=== PATIENT | female | born 1995 | race African-American/Black ===

== ENCOUNTER 2020-11-23 06:13 | Inpatient (IN) | payer BC, SELFPAY ==
[2020-11-23] VITALS (16 sets, daily range): BP systolic 109–140; BP diastolic 63–103; PULSE 77–140; RESP 16–18; TEMP 36.6–36.9; O2SAT 100; BMI 33.0
[2020-11-23] MEDS: OXYTOCIN 30 UNITS/NS 500 ML 30 UNITS/500 ML BAG 999 UNITS IV CONT (06:45)
--- NOTE | 2020-11-23 06:47 | LDADM ---
This patient, Myriam Casillas, was admitted to Labor/Delivery/Recovery 102 on 11/23/20 at 06:13. Plans for labor, pain management and were discussed with patient. Patient/family oriented to hospital policies and general routines including ID bracelet, bed and alarms, visiting hours, pain management, procedures, bathroom and other care routines, personal items, smoking policy, room service/diet and guest tray routines, infant security routines, and visiting hours. Patient/Family are encouraged to report perceived risks to care and to ask questions if they do not understand what they are told or what they should do. See OBIX for further documentation.
[2020-11-23 07:04] LABS: Basophils Percent Auto 0.2 % (0.2-1.2); Eosinophils Percent Auto 0.1 % (0-4.4); Hematocrit 32.2 % (37.0-47.0); Hemoglobin 10.5 g/dL (12.0-15.0); Immature Granulocyte Absolute 0.06 K/mm3 (0.00-0.031); Immature Granulocyte Percent A 0.5 % (0-0.5); Lymphocytes Absolute Auto 0.73 K/mm3 (0.9-3.2); Lymphocytes Percent Auto 5.9 % (18.3-44.2); Mean Corpuscular HGB Conc 32.6 g/dl (32-36); Mean Corpuscular Hemoglobin 27.4 pg (26-34); Mean Corpuscular Volume 84.1 fl (80-100); Mean Platelet Volume 9.1 fl (7.4-10.4); Monocytes Absolute Auto 0.4 K/mm3 (0.1-0.6); Monocytes Percent Auto 3.6 % (2.6-8.5); Neutrophils Absolute Auto 11.1 K/mm3 (1.3-6.7); Neutrophils Percent Auto 89.7 % (45.5-73.1); Platelet Count Result 406 k/mm3 (150-375); Red Blood Count 3.83 M/mm3 (4.2-5.4); Red Cell Distribution Width 13.3 % (11.5-14.5); White Blood Count 12.3 K/mm3 (4.5-10.0)
[2020-11-23] MEDS: OXYTOCIN 30 UNITS/NS 500 ML 30 UNITS/500 ML BAG 125 UNITS IV CONT (07:15)
[2020-11-23 07:54] LABS: HIV 1/2 Ab P24 Ag Result Negative (Negative)
[2020-11-23 08:09] LABS: Hepatitis B Surface Antigen Negative (Negative)
[2020-11-23 08:23] LABS: Amphetamine Screen Urine Negative (Negative); Barbiturate Screen Urine Negative (Negative); Benzodiazepines Screen Urine Negative (Negative); Cannabinoid Screen Urine Negative (Negative); Methadone Screen Urine Negative (Negative); Opiate Screen Urine Negative (Negative); Phencyclidine Screen Urine Negative (Negative)
--- NOTE | 2020-11-23 08:23 | PM.IMHP ---
H&P: HPI History of Present Illness Date/Time: 11/23/20 08:23 24 yo F with a h/o UTI, GBS, MTHFR, h/o chlamydia/trich, HSV, presents to [facility] after NSVVD in ambulance of viable female and placenta with no complications care began 05/13/2020 with only four visits last visit 11/01/20 Chief Complaint: term delivered remotely Review of Systems Review of Systems: All systems reviewed & are unremarkable except as noted in HPI and below Constitutional: Constitutional: Reports no additional constitutional complaints Eyes: Eyes: Reports no additional eye complaints ENT: Reports system reviewed and no additional complaints, except as documented Cardiovascular: Cardiovascular: Reports no additional cardiovascular complaints Respiratory: Respiratory: Reports no additional respiratory complaints Gastrointestinal: Gastrointestinal: Reports no additional gastrointestinal complaints Genitourinary: Genitourinary: Reports no additional female genitourinary complaints Musculoskeletal: Musculoskeletal: Reports no additional musculoskeletal complaints Integumentary/Breasts: Skin/Breast: Reports system reviewed and no additional complaints, except as docu Neurologic: Reports system reviewed and no additional complaints, except as documented Psychiatric: Psychiatric: Reports no additional psychiatric complaints Endocrine: Endocrine: Reports no additional endocrine complaints Hematologic/Lymphatic: Hematologic/Lymphatic: Reports no additional hematologic/lymphatic complaints Allergic/Immunologic: Allergic/Immunologic: Reports no additional allergic/immunologic complaints [facility] Past Medical History Medical History (Updated 11/23/20 @ 08:40 by Jerry Ybarra MD) Candidiasis of vagina 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 GBS (group B Streptococcus carrier), +RV culture, currently History of chlamydia History of trichomoniasis History of UTI HSV (herpes simplex virus) anogenital infection Marijuana smoker Smoker STD (sexually transmitted disease) complicating , delivered Vaginal delivery 04/23/20121408 lbs.4.99 oz.MStandard Vaginal [facility] 05/31/20141406 lbs.6.99 oz.MStandard [facility]inal [facility] 02/08/20161419 lbs.MStandard Vaginal DeliveryFull Term [facility] Vaginal delivery 02/08/20191401 hrs.9 lbs.2 oz.FStandard Vaginal DeliveryFull [facility] Social History Social History (Updated 11/23/20 @ 08:42 by Jerry Ybarra MD) Smoking packs per day: 1 Smoking cigarettes per day: 20.0 Years smoked: 6 Smoking pack-years: 6.00 Smoking status: Current every day smoker Tobacco type: cigarettes Second hand tobacco smoke exposure: Yes Alcohol intake: former Substance use: current Substance use type: marijuana Living arrangements: with family Occupation/Education: unemployed Gender identity (if verbalized by the patient): Female Sexual Orientation (if Verbalized by the Patient): Straight or Heterosexual Spiritual care concerns: No Agree to blood products: Yes Meds Home Medications and Allergies Home Medications Medication Instructions Recorded Confirmed Type acyclovir 800 mg PO DAILY 11/23/20 11/23/20 History folic acid 2 mg PO BID 11/23/20 11/23/20 History penicillin V potassium 500 mg PO BID 11/23/20 11/23/20 History progesterone micronized 200 mg PO BID 11/23/20 11/23/20 History Allergies Allergy/AdvReac Type Severity Reaction Status Date / Time No Known Allergies Allergy Verified 11/23/20 08:42 Vital Signs Vital Signs - 24 hr 11/23/20 06:33 11/23/20 06:45 11/23/20 07:01 Pulse Rate 92 84 94 Blood Pressure 132/93 H 138/91 H 127/88 11/23/20 07:17 11/23/20 07:31 11/23/20
--- NOTE | 2020-11-23 08:28 | WPDHPUPDATE1 ---
History and Physical Update Update Date/Time: 11/23/20 08:28 History and Physical has been reviewed, including an updated exam of the patient. There are NO changes in the patient's condition. Risks, benefits, and alternatives have been discussed and questions answered. Patient agrees to proceed with procedure. 24 yo F with a h/o UTI, GBS, MTHFR, h/o chlamydia/trich, HSV, presents to [facility] after NSVVD in ambulance of viable female and placenta with no complications
--- NOTE | 2020-11-23 08:49 | WPDOBADMIT ---
Obstetrics - Admit Note Admission Note: record reviewed. No pertinent additions to the history and/or any subsequent changes in the physical findings that are not consistent with the expected course of the were found. Additions to the history and/or subsequent changes in the physical findings follow. None. 24 yo F with a h/o UTI, GBS, MTHFR, h/o chlamydia/trich, HSV, presents to [facility] after NSVVD in ambulance of viable female and placenta with no complications care began 05/13/2020 with only four visits last visit 11/01/20 Chief Complaint: term delivered remotely
--- NOTE | 2020-11-23 08:50 | PM.OBPRVD ---
OB - Delivery Note Procedure Delivery date: 11/23/20 Procedure: normal spontaneous vertex vaginal delivery per EMS remotely of viable female infant and placenta events: Meconium Stained Fluid Intrapartal events: Precipitous Labor < 3 hours and Sexually Transmitted Infection Induction method: none Delivery monitor: none Route of delivery: Episiotomy description: None Laceration Description: None Specimen: Yes (placenta) Quantitative Blood Loss (ml): 0 Anesthesia type: None Disposition: floor Complications: none Narrative: inspection in labor room 102 normal intact perineum [place] Baby Date of : 11/23/20 Time of : 05:25 Weeks of gestation at delivery: 38 Infant gender: Female Weight (pounds): 7 Weight (ounces): 13 presentation: vertex Placenta delivery description: Spontaneous and Normal Configuration cord vessel description: 3 Vessels score one minute: 8 score five minutes: 9 Narrative: to nursery
--- NOTE | 2020-11-23 09:05 | OBPPTRN ---
Patient transferred to post room # 288 via wheelchair. Support person present. Oriented to unit, room, information board, rooming in, admission packet and security measures. Patient verbalizes understanding.
--- NOTE | 2020-11-23 11:20 | PCCCNOTE ---
Addendum entered by Faith Pop, LAWSON 11/24/20 11:14: Received additional call from Shannon stating pt.'s current case making machine operator is Zahira Finn who can be contacted at [phone]. Zahira is aware of tentative discharge tomorrow. Addendum entered by Faith Pop, LAWSON 11/24/20 11:02: Received call from Shannon [place] supervisor pipe finishing to Lc with DCFS. Per Shannon DCFS will be taking custody of baby at discharge. Informed Shannon that baby will likely discharge Friday. Shannon can be contacted at [phone]. Addendum entered by Faith Pop, LAWSON 11/23/20 14:49: Received call that DCFS worker Lc Manda is assigned to the case and can be contacted at cell phone [phone], office number is [phone]. Per Lc he will complete a home assessment this afternoon at 4pm and will contact CC once determination is made. Original Note: Care Coordination Consult: Met with pt. and SABA Andrade today. Pt. reports she has all necessary supplies at home for baby girl including a carseat, crib, clothing, diapers and bottles. Pt. plans to sign up for [facility] services at discharge. When asked if pt. had DCFS history she stated she does not have them anymore. When asked if there was a current DCFS worker she stated no, she stated DCFS is not involved with this baby. Did inform Myriam that DCFS has been notified of baby's and will be coming to the hospital today to meet with her. Did complete DCFS report #[id number] and spoke with Merari Dickens at the hotline who confirmed that a DCFS worker will be coming to the hospital today to meet with pt. Nursing is aware.
--- NOTE | 2020-11-23 12:43 | PC.NURSE ---
DCFS here to see pt.
[2020-11-23 13:13] LABS: Rapid Plasma Reagin Non-Reactive (NonReactive)
[2020-11-23 17:17] LABS: Alanine Aminotransferase 18 U/L (4-35); Albumin Level 3.5 g/dL (3.5-5.1); Alkaline Phosphatase 223 U/L (38-126); Anion Gap 8 mmol/L (8-16); Aspartate Amino Transferase 24 U/L (14-36); Bilirubin,Total 0.4 mg/dL (0.2-1.3); Blood Urea Nitrogen 5 mg/dL (7-17); Calcium 8.6 mg/dL (8.4-10.2); Carbon Dioxide 20 mmol/L (22-30); Chloride 107 mmol/L (98-107); Estimated CRCL calculation 163 ml/min; Estimated Glomerular Filt Rate > 60; Glucose 112 mg/dL (65-110); Sodium 135 mmol/L (137-145); Uric Acid 4.7 mg/dL (2.5-7.5)
[2020-11-23] MEDS: IBUPROFEN 600 MG TABLET PO (18:18)
[2020-11-24] MEDS: IBUPROFEN 600 MG TABLET PO ×3 (04:35→18:47)
[2020-11-24 05:33] LABS: Hematocrit 28.6 % (37.0-47.0); Hemoglobin 9.1 g/dL (12.0-15.0)
[2020-11-24 07:55] VITALS: BP 118/75; PULSE 69; RESP 18; TEMP 36.6; O2SAT 100
[2020-11-24] MEDS: DOCUSATE SODIUM 100 MG CAPSULE PO ×2 (10:20→18:47)
[2020-11-24] MEDS: POLYSACCHARIDE IRON COMPLEX 150 MG CAPSULE PO ×2 (10:20→18:47)
--- NOTE | 2020-11-24 10:57 | PM.OBDSVD ---
DS: Admitting Diagnosis Discharge Date November 25 2020 Admitting Diagnosis 1) Term delivered: Code(s): O80 - Encounter for full-term uncomplicated delivery Status: Acute (2) Insufficient care, delivered, current hospitalization: Code(s): O09.30 - Supervision of with insufficient care, unspecified trimester Status: Acute (3) Compound heterozygous MTHFR mutation C677T/[id number]: Code(s): Z15.89 - Genetic susceptibility to other disease Status: Acute (4) GBS (group B Streptococcus carrier), +RV culture, currently : Code(s): O99.820 - Streptococcus B carrier state complicating Status: Acute (5) HSV (herpes simplex virus) anogenital infection: Code(s): A60.9 - Anogenital herpesviral infection, unspecified Status: Acute (6) STD (sexually transmitted disease) complicating , delivered: Code(s): O98.32 - Other infections with a predominantly sexual mode of transmission complicating childbirth Status: Acute DS: Discharge Diagnosis Discharge Diagnosis (1) Term delivered: Code(s): O80 - Encounter for full-term uncomplicated delivery Status: Acute (2) Insufficient care, delivered, current hospitalization: Code(s): O09.30 - Supervision of with insufficient care, unspecified trimester Status: Acute (3) Compound heterozygous MTHFR mutation [id number]: Code(s): Z15.89 - Genetic susceptibility to other disease Status: Acute (4) GBS (group B Streptococcus carrier), +RV culture, currently : Code(s): O99.820 - Streptococcus B carrier state complicating Status: Acute (5) HSV (herpes simplex virus) anogenital infection: Code(s): A60.9 - Anogenital herpesviral infection, unspecified Status: Acute (6) STD (sexually transmitted disease) complicating , delivered: Code(s): O98.32 - Other infections with a predominantly sexual mode of transmission complicating childbirth Status: Acute OB - DS: Summary Hospital Course Time spent discussing smoking cessation with patient: 3 to 10 minutes OB Procedures : Ultrasound OB Procedures Intrapartum: Spontaneous Vag Delivery OB Procedures: : None Peripartum Data Infant Delivery Method: Natural Vaginal Laceration Description: None Episiotomy description: None complications: none 1: Gender: Female Disposition of : home Status at Discharge Cognitive/behavioral status at discharge: normal Functional status at discharge: independent ambulation Overall status at discharge: patient is back to baseline Time Spent with Patient Time attestation: Total time spent providing and/or coordinating discharge services: Time spent: Less than 30 minutes Exam Const: General: cooperative, healthy appearing, comfortable, no acute distress, well developed, alert and awake Nutritional Appearance: average body habitus and well nourished Orientation/consciousness: patient oriented x3 Limitations: no limitations HENMT: Head: normal to inspection Eyes: General: appearance normal, both eyes and all related structures Neck: Neck: normal visual inspection Chest: Chest palpation & inspection: normal inspection of the chest Resp: Effort & Inspection: normal respiratory effort Cardio: Rate: regular rate Rhythm: regular rhythm GI: Inspection: normal to inspection : External Female Exam: normal external appearance Back/Spine/Pelvis: Back: no CVA tenderness Skin: General skin exam: normal color Neuro: General: patient oriented x3, gait normal, tone normal and moves all extremities Extrem: General: normal to inspection and full ROM Psych: Appearance: grossly normal Mental Status: mental status grossly normal Speech and movement: Normal speech and movement present Affect: normal affec
--- NOTE | 2020-11-24 11:16 | P.PNOB_ITS ---
OB - PN: Subj Subjective Date/time seen: 11/24/20 11:16 Patient comments: no complaints and pain well controlled baby status: doing well and bottle feeding well [place] feeding status: exclusively bottle feeding OB - PN: Obj Data Labs CBC & Chem 7: 11/24/20 04:27 11/23/20 06:53 Labs: Laboratory Results - last 24 hr 11/23/20 11/23/20 11/23/20 06:53 06:53 07:46 Hgb Hct Sodium 135 L Potassium 4.0 Chloride 107 Carbon Dioxide 20 L Anion Gap 8 BUN 5 L Creatinine 0.50 L Estim Creat Clear Calc 163 Estimated GFR > 60 Glucose 112 H Uric Acid 4.7 Calcium 8.6 Total Bilirubin 0.4 AST 24 ALT 18 Alkaline Phosphatase 223 H Total Protein 7.0 Albumin 3.5 Urine Cocaine Screen TNP RPR Non-reactive 11/24/20 04:27 Hgb 9.1 L Hct 28.6 L Sodium Potassium Chloride Carbon Dioxide Anion Gap BUN Creatinine Estim Creat Clear Calc Estimated GFR Glucose Uric Acid Calcium Total Bilirubin AST ALT Alkaline Phosphatase Total Protein Albumin Urine Cocaine Screen RPR OB - PN A/P Assessment and Plan (1) Term delivered: Code(s): O80 - Encounter for full-term uncomplicated delivery Status: Acute (2) Insufficient care, delivered, current hospitalization: Code(s): O09.30 - Supervision of with insufficient care, unspecified trimester Status: Acute Plan day: 1 Plan: routine care, discharge home and follow up 6 weeks Time Spent With Patient Time: Total time spent is greater than 50% in coordination of care (as documented) at patient's floor/unit and/or counseling patient: Time with patient: less than 15 minutes Review of Systems Review of Systems: All systems reviewed & are unremarkable except as noted in HPI and below Exam Const: General: comfortable, no acute distress, alert and awake Chest: Breast/axilla inspection: normal inspection of the breasts Resp: Effort & Inspection: normal respiratory effort Cardio: Rate: regular rate GI: GI Palp: Yes Soft to palpation Auscultation: normal bowel sounds : General: Yes no CVA tenderness External Female Exam: normal external appearance Bimanual exam- vagina & uterus: non-tender Psych: Appearance: grossly normal Mental Status: mental status grossly normal Affect: normal affect Attitude: cooperative Thought content: Yes Normal thought content present Judgement: Good judgement present (Psych)
--- NOTE | 2020-11-24 15:00 | PC.NURSE ---
Zahira Finn, case supervisor, from [facility] here to see pt. regarding taking custody of baby upon discharge from hospital.
[2020-11-24 20:22] VITALS: BP 135/98; PULSE 76; RESP 16; TEMP 36.7
[2020-11-25] MEDS: DOCUSATE SODIUM 100 MG CAPSULE PO (07:09)
[2020-11-25] MEDS: POLYSACCHARIDE IRON COMPLEX 150 MG CAPSULE PO (07:09)
[2020-11-25] MEDS: IBUPROFEN 600 MG TABLET PO (07:09)
[2020-11-25 07:10] VITALS: BP 133/77; PULSE 76; RESP 16; TEMP 36.4; O2SAT 100
--- NOTE | 2020-11-25 12:25 | PCCCNOTE ---
Notified DCFS worker, Zahira Finn [phone], of pt. discharging. Zahira reported that FOMathew Francod was threatening the foster parents of pt's previous children. Nursing was made aware and Security was called in advance to ensure a safe environment. Pt's discharge was complete prior to DCFS arriving. Foster parents, DCFS worker, NICHOLAS Ruiz, and security present. Situation escalated with more threats and PD was called. PD present. Baby was taken into the nursery. Pt. and FOB Raymond were escorted out of the hospital. Zahira signed the release paperwork for baby and copy of Zahira's ID was placed in the baby's chart.
--- NOTE | 2020-11-25 12:41 | PC.NURSE ---
1033- Shannon with care coordination called. States DCFS wioll be here in about an hour. 1140- Went over discharge paperwork with patient (mom). Verbalizes understanding with no questions. Patient (mom) asked when will the baby's alarm get taken off? I informed the parents that the alarm doesn't come off until the baby is ready to leave and that the baby would be discharged in the care of DCFS. Patient & FOB both started saying that they wanted to see court orders and that they aren't letting them take their baby. 1145- Shannon with care coordination here. 1148- FOB at the desk demanding copies of the baby's lab results . I told FOB that the results of the UDS were negative. Also told FOB that the baby wasn't being taken because of mom's positive drug screen. 1150- Zahira with DCFS here. Zahira went in the room to speak with the patient and FOB. Myself and Shannon were also in the room. Security was right outside the room. 1155- FOB comes out of the room, making a fist and hitting his other hand saying if you take my kid, you better get ready. 1158- Called housekeeping aid, Sp. 1200- Called [place] police. 1205- taken out of patient's room and brought into the nursery. 1210- Police officers here. Spoke with the FOB for a short time and escorted him off of the floor. 1215- Mom discharged home. 1220- Went over discharge instructions with DCFS and foster parents. Verbalizes understanding with no questions. supplies sent. 1241- Baby discharged into the care of DCFS.
[2020-12-28 11:06] LABS: Reference Lab Test Result None Detected
== END 2020-11-25 12:15 | disposition home or self-care (01) | DRG 561 ==
LOC: ANHLDR 07:34 → ANHOB2 09:17
PROVIDERS: Admitting Provider Obstetrics & Gynecology; Visit Provider Obstetrics & Gynecology
DX: Z39.0 Encounter for care and examination of mother immediately after delivery (principal); O99.285 Endocrine, nutritional and metabolic diseases complicating the puerperium; E72.12 Methylenetetrahydrofolate reductase deficiency; O98.33 Other infections with a predominantly sexual mode of transmission complicating the puerperium; A60.9 Anogenital herpesviral infection, unspecified; O99.335 Smoking (tobacco) complicating the puerperium; F17.210 Nicotine dependence, cigarettes, uncomplicated; O99.825 Streptococcus B carrier state complicating the puerperium
CPT/HCPCS: 36415; 80053; 80307; 84550; 85014; 85018; 85025; 86592; 86703; 86850; 86900; 86901; 87340; 88307; A9270; G0432; J2590